=== PATIENT | female | born 1985 | race Caucasian/White ===

== ENCOUNTER 2017-02-23 20:56 | Emergency (ER) | payer BC, OTHER ==
[2017-02-23 21:12] VITALS: BP 142/85
[2017-02-23] MEDS ORDERED: Tetanus-Diphtheria* SYRINGE IM ONE (21:50)
[2017-02-23] MEDS ORDERED: Tetanus-Diptheria Toxoids* 0.5 ML SYRINGE ONE (21:55)
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
== END 2017-02-23 22:15 | disposition home or self-care (01) ==
LOC: UCEAST 20:56
DX: S40.812A Abrasion of left upper arm, initial encounter (principal); S40.012A Contusion of left shoulder, initial encounter; V40.0XXA Car driver injured in collision with pedestrian or animal in nontraffic accident, initial encounter; Y93.89 Activity, other specified; Y92.410 Unspecified street and highway as the place of occurrence of the external cause; Z23 Encounter for immunization; J45.909 Unspecified asthma, uncomplicated; N05.9 Unspecified nephritic syndrome with unspecified morphologic changes; F32.9 Major depressive disorder, single episode, unspecified; E66.9 Obesity, unspecified; Z88.1 Allergy status to other antibiotic agents; Z88.7 Allergy status to serum and vaccine; Z87.891 Personal history of nicotine dependence
CPT/HCPCS: 90471; 99211; G0463